=== PATIENT | female | born 1965 | race Two or more races ===

== ENCOUNTER → 2018-09-29 | Outpatient (CLI) | payer BC | END | disposition home or self-care (01) | LOC: CVU 10:24 | PROVIDERS: ATTEND Internal Medicine Cardiovascular Disease | DX: I07.1 Rheumatic tricuspid insufficiency (principal); I73.9 Peripheral vascular disease, unspecified; M79.605 Pain in left leg; R20.2 Paresthesia of skin; M79.89 Other specified soft tissue disorders; R60.0 Localized edema; Z87.891 Personal history of nicotine dependence | CPT/HCPCS: 93306; 93922; 93970 ==

== ENCOUNTER → 2019-01-18 | Outpatient (CLI) | payer BC | END | disposition home or self-care (01) | LOC: CFH 08:27 | PROVIDERS: ATTEND Internal Medicine Cardiovascular Disease | DX: R07.9 Chest pain, unspecified (principal) | CPT/HCPCS: 78452; 93017; A9502 ==